=== PATIENT | male | born 1965 | race African-American/Black ===

== ENCOUNTER 2017-04-26 16:19 | Emergency (ER) | payer MEDICAID ==
[~2017-04-26] VITALS: Ht 167.6 cm; Wt 82.0 kg
[~2017-04-26 16:19] MED LIST: BACTRIM; HYDR-3511 PO; [UNRECOGNIZED DRUG - CODE] PO; [UNRECOGNIZED DRUG - OTHER]
[2017-04-26] MEDS ORDERED: LIDOCAINE HCL 1% 20ML VIAL (Pyxis) INJ INFIL ONE (17:15)
[2017-04-26] MEDS ORDERED: LIDOCAINE HCL/PF 1% 10 MG/ML 5ML VIAL ONE (17:25)
[2017-04-26] MEDS ORDERED: ACETAMINOPHEN WITH CODEINE 300/30MG TABLET PO ONE (18:30)
[2017-04-26 18:46] VITALS: BP 148/88
== END 2017-04-26 18:47 | disposition home or self-care (01) ==
LOC: ER 16:19
DX: K61.0 Anal abscess (principal); L02.31 Cutaneous abscess of buttock
CPT/HCPCS: 46050; 99284; J3490; Z7610

== ENCOUNTER 2018-09-25 16:40 | Emergency (ER) | payer MEDICAID ==
[~2018-09-25] VITALS: Ht 175.3 cm; Wt 70.0 kg
[~2018-09-25 16:40] MED LIST changes: -HYDR-3511 PO; +HYDR-3512 PO
[2018-09-25] MEDS ORDERED: KETOROLAC 60MG/2ML VIAL IM ONE (19:15)
[2018-09-25 19:29] VITALS: BP 140/71
== END 2018-09-25 20:03 | disposition home or self-care (01) ==
LOC: ER 16:40
DX: L02.31 Cutaneous abscess of buttock (principal); L03.317 Cellulitis of buttock
CPT/HCPCS: 96372; 99283; J1885

== ENCOUNTER 2018-09-26 06:43 | Emergency (ER) | payer MEDICAID ==
[~2018-09-26] VITALS: Ht 157.5 cm; Wt 82.0 kg
[2018-09-26] MEDS: LIDOCAINE HCL/PF 1% 10 MG/ML 5ML VIAL IJ ONE (07:45)
[2018-09-26] MEDS: KETOROLAC 60MG/2ML VIAL IM ONE (08:21)
[2018-09-26 08:22] VITALS: BP 142/80
== END 2018-09-26 08:28 | disposition home or self-care (01) ==
LOC: ER 06:43
DX: K61.0 Anal abscess (principal); D17.24 Benign lipomatous neoplasm of skin and subcutaneous tissue of left leg; E78.00 Pure hypercholesterolemia, unspecified; I25.2 Old myocardial infarction; Z98.890 Other specified postprocedural states
CPT/HCPCS: 46050; 96372; 99284; J1885; J3490

== ENCOUNTER 2018-09-26 12:44 | Emergency (ER) | payer MEDICAID ==
[~2018-09-26] VITALS: Ht 167.6 cm; Wt 81.0 kg
[2018-09-26] MEDS ORDERED: CLINDAMYCIN 600 MG in DEXTROSE 5% WATER 50 ML IV ONE (14:30)
[2018-09-26] MEDS: SODIUM CHLORIDE 0.9% 1,000 ML IV ONE (14:40)
[2018-09-26] MEDS: TETANUS, DIPHTHERIA, PERTUSSIS VAC/PF 0.5ML (>7YR OLD) IM ONE (14:40)
[2018-09-26 15:05] LABS: BASOPHILS % 0.3 % (0.0-2.0); EOSINOPHILS % 0.2 % (0.0-5.0); HEMATOCRIT. 43.4 % (42.0-52.0); HEMOGLOBIN. 14.5 g/dL (14.0-18.0); LYMPHOCYTES % 9.6 % (20.0-50.0); MEAN CORPUSCULAR HEMOGLOBIN 29.9 pg (28.0-32.0); MEAN CORPUSCULAR VOLUME 89.3 fL (80.0-94.0); MEAN PLATELET VOLUME 9.5 fl (7.4-10.4); MONOCYTES % 8.4 % (2.0-8.0); NEUTROPHILS % 81.5 % (40.0-76.0); PLATELET 179 x1000/uL (130-400); RED BLOOD CELL COUNT 4.86 mill/uL (4.7-6.1); RED CELL DISTRIBUTION WIDTH 14.6 % (11.6-14.6)
[2018-09-26 15:07] LABS: CHLORIDE 101 mEq/L (98-107)
[2018-09-26] MEDS: CLINDAMYCIN 600 MG in SODIUM CHLORIDE 0.9% 50 ML IV ONE (15:17)
[2018-09-26 15:36] LABS: CLARITY URINE CLEAR (CLEAR); COLOR URINE DARK YELLOW (YELLOW); KETONES URINE TRACE (NEGATIVE); LEUKOCYTE ESTERASE URINE NEGATIVE (NEGATIVE); NITRITE URINE NEGATIVE (NEGATIVE); OCCULT BLOOD URINE TRACE (NEGATIVE); PH URINE 5.5 (4.5-8.0); PROTEIN URINE TRACE (NEGATIVE); SPECIFIC GRAVITY URINE 1.035 (1.005-1.030)
[2018-09-26] MEDS ORDERED: IOHEXOL-300 100 ML BOTTLE ONE (16:21)
[2018-09-26 18:20] VITALS: BP 140/78
== END 2018-09-26 18:34 | disposition home or self-care (01) ==
LOC: ER 12:44
DX: L02.211 Cutaneous abscess of abdominal wall (principal); E78.00 Pure hypercholesterolemia, unspecified; I25.2 Old myocardial infarction; I10 Essential (primary) hypertension; Z79.899 Other long term (current) drug therapy
CPT/HCPCS: 36415; 74177; 80048; 81003; 85025; 87040; 87086; 90471; 90715; 96365; 99284; J3490; J7030; Q9967; J7060